=== PATIENT | male | born 1950 | race Caucasian/White ===

== ENCOUNTER 2017-09-19 12:10 | Observation (INO) ==
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
[2017-09-19] MEDS ORDERED: KETOROLAC 30 MG/ML INJECTION IVP ONE (12:50)
[2017-09-19] MEDS ORDERED: NS 1,000 ML IV ONE (12:50)
[2017-09-19] MEDS ORDERED: PROCHLORPERAZINE 10 MG/2 ML INJECTION IVP ONE (12:50)
[2017-09-19] MEDS ORDERED: MORPHINE SULFATE 4mg INJECTION IVP ONE (12:50)
[2017-09-19] MEDS ORDERED: SALINE FLUSH 10ml SYRINGE IVF PRN (12:50)
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
--- NOTE | 2017-09-19 14:32 | XRay Report ---
Indication: left-sided stone evaluated place PROCEDURE: XR KUB w upright: Encounter: Initial Comparison: Renal CT dated September 07, 2017 and radiographs dated September 06, 2017 Findings: The lung bases are clear. No free air. Bowel gas pattern is nonobstructive and nonspecific. Left renal stones appears stable in position. The previously noted left ureteral stone appears to have migrated distally and is now visible in the expected location of the left ureterovesicular junction. Mild degenerative change in the spine and hips. Old right rib fractures. Impression: Interval distal migration of the left ureteral stone, now at the UVJ. .
--- NOTE | 2017-09-19 15:08 | CT Scan Report ---
Indication: possible tibial plateau fracture PROCEDURE: CT knee LT wo con: Encounter: Initial Comparison: Left knee Radiographs from today Technique: Axial CT images were performed through the left knee without intravenous contrast. Coronal and sagittal two-dimensional reformats. Automated Exposure Control and Iterative Reconstruction dose reducing techniques were utilized. Findings: The lucency in the tibial spine region is seen to be due to subchondral degenerative cyst formation rather than an acute fracture. Irregularity of the medial corner of the medial tibial plateau is due to osteophytes and subchondral cystic degenerative change. No acute fracture or dislocation seen. No joint effusion. Mild medial compartment joint space narrowing. Arterial vascular calcifications. Impression: No acute fracture. .
[2017-09-19] MEDS ORDERED: ASPIRIN 81 MG CHEWABLE TABLET PO SCH (15:30)
[2017-09-19] MEDS ORDERED: HEPARIN 1,000unit/ml INJECTION 10ml ONE (15:52)
[2017-09-19] MEDS ORDERED: LIDOCAINE 2%/EPI 1:200,000 20ml SDV PF ONE (15:52)
[2017-09-19] MEDS ORDERED: IOHEXOL 350mg/ml 200ml BOTTLE ONE (15:53)
[2017-09-19] MEDS ORDERED: HEPARIN 1,000 UNITS/500 ML PREMIX (*CVL ONLY*) IV ONE (15:53)
[2017-09-19] MEDS ORDERED: FentaNYL 100 MCG/2 ML INJECTION ONE (16:01)
[2017-09-19] MEDS ORDERED: MIDAZOLAM 2mg/2ml INJECTION ONE (16:02)
[2017-09-19] MEDS ORDERED: NS 1,000 ML ONE (16:02)
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
[2017-09-19] MEDS ORDERED: CLOPIDOGREL 75 MG TABLET ONE (16:24)
[2017-09-19] MEDS ORDERED: ALBUTEROL/IPRATROPIUM 2.5mg-0.5mg/3ml NEB AEROSOL PRN (16:29)
[2017-09-19] MEDS ORDERED: ASPIRIN 325 MG TABLET ONE (16:33)
[2017-09-19] MEDS ORDERED: Oxycodone/Acetaminophen 5/325 1 TAB PO PRN (16:37)
[2017-09-19] MEDS ORDERED: NICOTINE 14 MG PATCH TD PRN (16:40)
[2017-09-19] MEDS ORDERED: NS 1,000 ML IV SCH (16:45)
[2017-09-19] MEDS ORDERED: NICOTINE PATCH REMOVAL TD PRN (16:45)
[2017-09-19 17:07] VITALS: BMI 22.0
--- NOTE | 2017-09-19 18:10 | Cardiac Catheterization Report ---
DATE OF PROCEDURE September 19, 2017 The patient is a 67-year-old gentleman who presented to the emergency room with chest pain and elevated troponin suggestive of acute coronary syndrome and was referred for further evaluation by cardiac catheterization and possible intervention. Informed consent was obtained after explaining the procedure and the potential risks to the patient who agreed to proceed with the procedure. PROCEDURE 1. Left heart catheterization. 2. Coronary angiography. 3. Left ventriculography. 4. Primary stent of left circumflex artery using a 2.25 x 18 mm drug-eluting [place] stent. 5. Right femoral angiography to visualize the vessel for closure device. 6. Successful Mynx deployment for hemostasis. TECHNIQUE He was prepped and draped in the usual sterile techniques. 1% lidocaine was used for local anesthesia. Conscious sedation was performed using Versed and fentanyl. Using modified Seldinger technique, arterial access was obtained into the right femoral artery with placement of a 6-[place] arterial sheath. 5000 units of heparin, 600 mg of Plavix and aspirin were given prior to intervention. LEFT VENTRICULOGRAPHY Left ventriculography in single-plane CERVANTES shallow projection showed normal LV systolic function with ejection fraction of about 65% with no mitral regurgitation or gradient across the aortic valve. LVEDP was about 6. CORONARY ANGIOGRAPHY Left main was small and short and free of significant lesions. It bifurcated into left anterior descending and left circumflex arteries. Left anterior descending artery was a small-caliber vessel with what appeared to be a 50% lesion in the mid segment at the junction of the mid and distal third of the vessel. Diagonals were small and free of significant lesions. Left circumflex artery had subtotal occlusion in mid segment which appeared to be the culprit vessel. It was nondominant. Right coronary artery was dominant with diffuse disease of up to about 30%-40% stenosis. After reviewing the images we decided to proceed with intervention on left circumflex artery. A 6-[place] EBU 3.5 with side holes was advanced to the ostium of the left main. A Mcandrews wire was used to cross the lesion into distal circumflex. A 2.25 x 18 mm drug-eluting [place]olute [place] stent was delivered to the lesion site where it was deployed by inflating the balloon to 14 atmospheres. The next angiogram showed excellent results with no residual stenosis. Right femoral angiography showed patent common femoral, proximal SFA and profunda and therefore Mynx was used for hemostasis. IMPRESSION 1. Normal LV systolic function with ejection fraction of about 65%. 2. Coronary artery disease as described above with subtotal occlusion of the left circumflex artery. 3. Successful primary stent of left circumflex artery using a 2.25 x 18 mm drug -eluting [place]olute [place] stent. 4. Successful Mynx deployment for hemostasis. PLAN Will keep him on dual antiplatelet therapy at least for one year and continue risk modification. TAMI
[2017-09-19] MEDS ORDERED: ONDANSETRON 4 MG/2 ML INJECTION IVP PRN (19:33)
[2017-09-19] MEDS ORDERED: Bisacodyl EC TAB 5 MG TABLET PO PRN (19:33)
[2017-09-19] MEDS ORDERED: ACETAMINOPHEN 325 MG TABLET PO PRN (19:33)
[2017-09-19] MEDS ORDERED: ATROPINE 1 MG/ML INJECTION IVP PRN (19:33)
[2017-09-19] MEDS ORDERED: LORazepam 0.5 MG TABLET PO PRN (19:33)
[2017-09-19] MEDS ORDERED: MAG-AL + SIM ORAL LIQUID 30ml PO PRN (19:33)
[2017-09-19] MEDS ORDERED: PROMETHAZINE 25 MG INJECTION IVP PRN (19:33)
[2017-09-19] MEDS ORDERED: BISACODYL 10 MG SUPPOSITORY RECTALLY PRN (19:33)
[2017-09-19] MEDS ORDERED: MORPHINE SULFATE 4mg INJECTION IVP PRN ×2 (19:33)
[2017-09-19] MEDS ORDERED: NITROGLYCERIN 0.4 MG SUBLINGUAL TABLET SL PRN (19:33)
[2017-09-19] MEDS ORDERED: METOCLOPRAMIDE 10mg/2ml INJECTION IVP PRN (19:33)
[2017-09-19] MEDS ORDERED: HYDROCODONE/APAP 5mg/325mg TABLET PO PRN (19:33)
[2017-09-19] MEDS ORDERED: ONDANSETRON 4 MG TABLET PO SCH (21:00)
[2017-09-19] MEDS ORDERED: ATORVASTATIN 40 MG TABLET PO SCH (21:00)
[2017-09-19] MEDS ORDERED: TAMSULOSIN 0.4 MG CAPSULE PO SCH ×2 (21:00)
[2017-09-20] MEDS ORDERED: CLOPIDOGREL 75 MG TABLET PO SCH (09:00)
[2017-09-20] MEDS ORDERED: LISINOPRIL 5 MG TABLET PO SCH (09:00)
[2017-09-20] MEDS ORDERED: ASPIRIN *EC* 81 MG TABLET PO SCH (09:00)
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
[2017-09-20 10:13] VITALS: TEMP 98.4; O2SAT 97
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
[2017-09-20 18:54] VITALS: BP 109/52; PULSE 59; RESP 17
--- NOTE | 2017-09-21 10:59 | XRay Report ---
Indication: chest pain PROCEDURE: XR chest 1V: Encounter: Initial Comparison: March 22, 2017 Findings: The lungs are stable in appearance without new focal airspace consolidation. There is no pleural effusion or pneumothorax. The heart size, pulmonary vascularity and mediastinal contours are unchanged. Old right rib fractures. IMPRESSION: Stable appearance of the chest without acute cardiopulmonary disease. .
== END 2017-09-20 18:45 | disposition home or self-care (01) ==
LOC: ED 12:10 → EDHOLD 12:10 → SUATTDRO 15:19 → EDHOLD 15:44 → CCU 16:41
PROVIDERS: ADMIT Hospitalist; ATTEND Internal Medicine